=== PATIENT | female | born 1995 | race American Indian/Alaskan Native ===

== ENCOUNTER 2016-10-20 18:21 | Emergency (ER) | payer SELFPAY ==
[2016-10-20] MEDS ORDERED: TYLENOL ONE (19:00)
--- NOTE | 2016-10-20 19:08 | Emergency Department Report ---
Chief Complaint: Headache Stated Complaint: HEADACHE W/PHOTOFOBIA - HPI History of Present Illness: 21-year-old obese female comes in with complaint of headache that started yesterday afternoon. Patient reports that headache is more on the right temporal area. Patient reports that her nose is been running in her eyes are tearing. She did try to take ibuprofen 800 mg yesterday evening which helped but she did not take any more headaches back. Patient denies any nausea vomiting she denies any trauma no fever no chills. - Exam Vital Signs: Vital Signs 10/20/16 18:37 Temperature 98.8 F Pulse Rate 84 Respiratory 19 Rate Blood Pressure 157/114 O2 Sat by Pulse 100 Oximetry Physical Exam: Patient's alert and oriented ears to be somber Neuro: Alert and oriented. EOMI , pupils equal round and reactive to light and accommodation. 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 Able to move the right and left. Able to shrug shoulders MSE screening note: Focused history and physical exam performed. Due to findings the following was ordered: Patient's been evaluated by this provider Alexx BRADY. We will order blood work CBC CMP CAT scan urinalysis urine she'll be evaluated to Main ER ED Disposition for MSE Condition: Stable
[2016-10-20] MEDS ORDERED: TYLENOL PO ONE (19:11)
[2016-10-20 19:40] LABS: Hematocrit 38.9 % (30.3-42.9); Hemoglobin 12.4 gm/dl (10.1-14.3); Mean Corpuscular HGB Conc 32 % (30-34); Mean Corpuscular Volume 74 fl (79-97); Platelet Count 260 K/mm3 (140-440); Red Blood Count 5.29 M/mm3 (3.65-5.03)
[2016-10-20 19:44] LABS: Alanine Aminotransferase 30 units/L (7-56); Albumin 4.5 g/dL (3.9-5); Albumin/Globulin Ratio 1.3 %; Alkaline Phosphatase 90 units/L (35-129); Anion Gap 19 mmol/L; BUN/Creatinine Ratio 8.57; Bilirubin,Total 0.2 mg/dL (0.1-1.2); Blood Urea Nitrogen 6 mg/dL (7-17); Calcium 9.3 mg/dL (8.4-10.2); Carbon Dioxide 26 mmol/L (22-30); Chloride 96.1 mmol/L (98-107); Glucose 124 mg/dL (65-100); Mean Corpuscular Hemoglobin 23 pg (28-32); Sodium 137 mmol/L (137-145); Total Protein 8.1 g/dL (6.3-8.2)
--- NOTE | 2016-10-20 22:42 | Cat Scan Report ---
FINAL REPORT PROCEDURE: CT HEAD/BRAIN WO CON TECHNIQUE: Computerized tomography of the head was performed without contrast material. HISTORY: Headache COMPARISON: No prior studies are available for comparison. FINDINGS: No CT evidence of intracranial mass, hemorrhage, acute territorial infarction, or hydrocephalus. Ventricles are diffusely small in caliber. Intracranial arteries are symmetric in density. Calvarium is intact. There is medial depression of the left medial orbital wall, which may be related to old trauma. Bilateral maxillary sinus mucosal retention cysts or polyps. Mastoids are aerated. IMPRESSION: Sinus disease. Ventricles are diffusely small in caliber, which may be developmental. If there is any clinical concern for idiopathic intracranial hypertension, further evaluation could be obtained.
[2016-10-20] MEDS ORDERED: BENADRYL IV ONE (23:38)
[2016-10-20] MEDS ORDERED: REGLAN IV ONE (23:38)
[2016-10-20] MEDS ORDERED: NACL 0.9% 1000 ML 1,000 ML IV ONE (23:38)
--- NOTE | 2016-10-20 23:46 | Emergency Department Report ---
ED Headache HPI - General Chief Complaint: Headache Stated Complaint: HEADACHE W/PHOTOPHOBIA Time Seen by Provider: 10/20/16 23:32 Source: patient, EMS Exam Limitations: no limitations - History of Present Illness Initial Comments: 21-year-old female presents to the emergency department via EMS complaining of headache. Patient states she began having a headache yesterday that has steadily gotten worse since that time. She describes a throbbing pain all over her head. She states the light hurts her eyes. She denies nausea or vomiting. Patient reports previous headaches, but this is more severe. Family states that the patient became unresponsive this afternoon, prompting the call to EMS. States the patient is weak on her right side. There are no other complaints. Timing/Duration: 24 hours Quality: severe Head Injury Location: global Recent Head Trauma: no recent headache/trauma, occasional headaches Modifying Factors: improves with: exposure to light Associated Symptoms: denies symptoms Allergies/Adverse Reactions: Allergies coconut Allergy (Uncoded 10/20/16 18:39) Swelling Home Medications: Ambulatory Orders Butalb/Acetamin/Caff 50-325-40 [Fioricet] 1 each PO Q4H PRN #30 tablet 10/21/16 ED Review of Systems ROS: Stated complaint: HEADACHE W/PHOTOFOBIA Other details as noted in HPI Comment: All other systems reviewed and negative Eyes: as per HPI Neurological: headache ED Past Medical Hx - Past Medical History Previous Medical History?: Yes Additional medical history: Morbid obesity. GALLBLADDER DISEASE - Surgical History Past Surgical History?: No - Family History Family history: no significant - Social History Smoking Status: Never Smoker Substance Use Type: None - Medications Home Medications: Home Medications Medication Instructions Recorded Confirmed Last Taken Type Butalb/Acetamin/Caff 50-325-40 1 each PO Q4H PRN #30 tablet 10/21/16 Unknown Rx [Fioricet] ED Physical Exam - General Limitations: No Limitations General appearance: alert, in distress (patient appears uncomfortable), obese - Head Head exam: Present: atraumatic, normocephalic - Eye Eye exam: Present: normal appearance, PERRL, EOMI, conjunctival injection. Absent: nystagmus - ENT ENT exam: Present: normal exam, normal orophraynx. Absent: mucous membranes moist - Neck Neck exam: Present: normal inspection, full ROM. Absent: tenderness - Respiratory Respiratory exam: Present: normal lung sounds bilaterally. Absent: respiratory distress - Cardiovascular Cardiovascular Exam: Present: regular rate, normal rhythm, normal heart sounds - GI/Abdominal GI/Abdominal exam: Present: soft, normal bowel sounds. Absent: distended, tenderness - Extremities Exam Extremities exam: Present: normal inspection, full ROM. Absent: tenderness - Back Exam Back exam: Present: normal inspection, full ROM. Absent: tenderness - Neurological Exam Neurological exam: Present: alert, oriented X3, reflexes normal, other (5/5 strength in all extremities. No sensory deficit.). Absent: motor sensory deficit - Skin Skin exam: Present: warm, dry, intact ED Course Vital Signs 10/20/16 10/20/16 10/20/16 18:37 19:04 23:30 Temperature 98.8 F Pulse Rate 84 90 Respiratory 19 18 16 Rate Blood Pressure 157/114 Blood Pressure 140/110 [Left] O2 Sat by Pulse 100 95 Oximetry ED Medical Decision Making - Lab Data Result diagrams: 10/20/16 19:10 10/20/16 19:10 - Radiology Data Radiology results: report reviewed, image reviewed Head CT shows sinus disease. There is no acute intracranial abnormality. - Medical Decision Making Lab and imaging results reviewed and discussed with the patient and family. Patient reports feeling better following medication. Her blood pressure has improved as well. Patient will be discharged home at this time to follow up with her primary care physician for possible neurology referral. - Differential Diagnosis migraine headache, tension headache, conversion disorder Critical care attestation.: If time is entered above; I have spent that time in minutes in the direct care of this critically ill patient, excluding procedure time. ED Disposition Clinical Impression: Headache Qualifiers: Headache type: unspecified Headache chronicity pattern: acute headache Intractability: not intractable Qualified Code(s): R51 - Headache Disposition: DISCHARGED TO HOME OR SELFCARE Is pt being admited?: No Condition: Stable Instructions: Acute Headache (ED) Prescriptions: Butalb/Acetamin/Caff 50-325-40 [Fioricet] 1 each PO Q4H PRN #30 tablet PRN Reason: Headache Referrals: PRIMARY CARE, [Primary Care Provider] - 3-5 Days Time of Disposition: 01:24
[2016-10-21 01:35] LABS: Mucus,Urine FEW /HPF
[2016-10-21 01:36] VITALS: BP 98/65
[2016-10-21 01:36] LABS: Bilirubin,Urine NEG (Negative); Blood,Urine LG (Negative); Ketones,Urine NEG (Negative); Leukocyte Esterase,Urine MOD (Negative); Nitrite,Urine NEG (Negative); Protein,Urine <15 mg/dL mg/dL (Negative); Urobilinogen,Urine < 2.0 mg/dL (<2.0)
== END 2016-10-21 02:30 | disposition home or self-care (01) ==
LOC: ED 18:21
DX: R51 Headache (principal); E66.01 Morbid (severe) obesity due to excess calories
CPT/HCPCS: 36415; 70450; 80053; 81001; 84703; 85027; 96361; 96374; 96375; 99284; J1200; J2765; J7030